=== PATIENT | female | born 1995 | race Caucasian/White ===

== ENCOUNTER 2016-08-09 00:51 | Emergency (ER) | payer OTHER ==
[~2016-08-09] VITALS: Ht 157.5 cm; Wt 59.1 kg
[2016-08-09 00:56] VITALS: BP 109/68; PULSE 81; RESP 16; O2SAT 100
--- NOTE | 2016-08-09 01:53 | ED.REPORT ---
HPI-Abd Pain F Under 41 Date of Service Aug 09, 2016 ED Provider: Jake Munoz MD A 20 year old female with a history of depression presents to the ED with thick urine onset today. The patient describes the consistency as "syrupy." She denies recent sexual intercourse, vaginal discharge, dysuria, or other symptoms. Nursing Notes Stated Complaint: THICK URINE Chief Complaint: Female Abdominal Pain Nursing Notes Reviewed: Yes Allergies: Coded Allergies: azithromycin (Verified Allergy, Unknown, rash, 08/09/16) General Time Seen by MD: 01:51 Chief Complaint Other (Thick Urine) Hx Obtained From: Patient Arrived By: Walk-in Onset Occurred: 1 - 4 hours ago Symptom Duration: Since onset Severity: Current: No pain currently Severity: Maximum: No pain Associated with: Denies: Fever, Vaginal discharge Pertinent Negative: Relieved by nothing Recent Healthcare: No recent doctor visit Past Medical History Past Medical History 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 Physical Exam Initial Vital Signs Vital Signs (First) Date Time Temp Pulse Resp B/P Pulse Ox O2 Delivery O2 Flow Rate FiO2 08/09/16 00:56 36.2 81 16 109/68 100 Room Air Initial VS: Reviewed Head / Eyes: Atraumatic, Normocephalic ENT: Conjunctiva normal, No scleral icterus Neck: Supple, Full range of motion Skin: Warm, Dry, No cyanosis Neurologic: Alert, Oriented, Nonfocal Psychiatric: Mood/affect normal, Behavior normal, Normal thought content General/Constitutional: Awake, Alert, No acute distress Abdomen: Soft, Non-tender, No distention Interpretation & Diagnostics Lab Results Interpretation Test 08/09/16 01:30 Hold Urine Received (Received) Re-Eval/Medical Decision Med Decision/Clinical Course Med Decision/Clinical Course: 20-year-old presents with what she perceived as thick urine. Her urine is completely normal. Suspect she has had some mucoid vaginal discharge to combined with her urine and gave her the impression syrupy texture. Declines pelvic exam as she says she has no discharge at this point. Not sexually active. No other particular medical concerns. Discharged in stable condition. Re-Evaluation/Progress : Time of Eval: 02:00 Patient Status: Condition improved Re-Evaluation/Progress Note: Discussed with patient diagnosis and plan for discharge. Follow-up and return to the ER instructions given. Patient agrees with plan for care and all questions were addressed. Counseled Regarding: Diagnosis, Need for follow-up, When/why to return to ED Discharge & Departure Primary Impression: Vaginal discharge Disposition: Home Discharge Condition All VS Reviewed: Yes Condition: Improved Patient Instructions: Urinary Tract Infection in Women (ED) Additional Instructions: Your urine by test is quite normal in appearance. I can only suspect that you have a small amount of vaginal mucus that became caught up in the urine and was excreted at the same time, so that you saw it as thickened. I have included instructions about urinary tract infection, not because I believe you have that, but because he will tell you about the signs to watch for , if your symptoms change. Follow-up with your doctor in the office. You may follow-up at residency clinic if you need a local physician. Referrals: [facility] (PCP) [facility] Beckie Attestation Portions of this note were transcribed by Merline Dyer. I, Dr. Munoz, personally performed the history, physical exam, and medical decision-making; I reviewed and confirmed the accuracy of the information in the transcribed note. Signed by: Beckie Johnson, 08/09/2016, 03:35 copies to: [facility] Jake Munoz MD Aug 09, 2016 01:53 MERLINE DYER Aug 09, 2016 02:01
[2016-08-09 02:18] VITALS: BP 109/68; PULSE 81; RESP 16; O2SAT 100
== END 2016-08-09 02:18 | disposition home or self-care (01) ==
LOC: SED 00:51
DX: N89.8 Other specified noninflammatory disorders of vagina (principal); Z88.1 Allergy status to other antibiotic agents